=== PATIENT | female | born 2000 | race Two or more races ===

== ENCOUNTER 2020-11-24 16:40 | Emergency (ER) | payer MEDICAID ==
[~2020-11-24] VITALS: Ht 162.6 cm; Wt 113.4 kg
[2020-11-24 16:50] VITALS: BP 132/85
--- NOTE | 2020-11-24 16:50 | NUR ---
ED Nurse Note: Pt walked in to ED from home c/o flank pain radiating to RLQ x4 days. Denies nausea/ vomiting/ diarrhea. No fever. Per pt, she tetsed positive covid last 11/05/20, was treated with atb and tested negative last 11/19. Denies SOB/ CP. AAOx4, verbally responsive. ERMD at bedside.
[2020-11-24 17:23] LABS: APPEARANCE,URINE SLIGHTLY CLOUDY; BILIRUBIN, URINE NEGATIVE (NEGATIVE); COLOR,URINE PALE YELLOW; GLUCOSE, URINE (UA) NEGATIVE (NEGATIVE); KETONES,URINE 3+ (NEGATIVE); LEUKOCYTE ESTERASE ,URINE 2+ (NEGATIVE); NITRITE,URINE NEGATIVE (NEGATIVE); PH,URINE 6 (4.5-8.0); PROTEIN,URINE NEGATIVE (NEGATIVE); UROBILINOGEN,URINE NORMAL MG/DL (0.0-1.0)
--- NOTE | 2020-11-24 17:39 | NUR ---
ED Nurse Note: pt was taken to CT via wc, accompanied by a tech.
--- NOTE | 2020-11-24 17:40 | NUR ---
ED Nurse Note: IV line established. Blood and urine sent to lab.
[2020-11-24] MEDS ORDERED: cefTRIAXone 1 GM in NS 55 ML IVPB ONE (17:45)
[2020-11-24] MEDS ORDERED: NAPROXEN500 M1 ORAL (17:46)
[2020-11-24] MEDS ORDERED: CEPHALEXIN500 MG ORAL (17:46)
[2020-11-24] MEDS ORDERED: ONDANSETRON ODT4 MG BC (17:46)
--- NOTE | 2020-11-24 17:46 | Emergency Room Report ---
History of Present Illness General Chief Complaint: Abdominal Pain Source: Patient Present Illness HPI 20-year-old female with past medical history of ovarian cyst status post resection, COVID-19 diagnosed 3 weeks ago presents to emergency department with complaint of right flank pain x4 days. Radiates to the right lower quadrant. Endorses mild nausea. Denies history of kidney stones, fever, chills, vomiting, diarrhea, melena, hematochezia, dysuria, hematuria. Is not sexually active. Denies concern or history of sexually transmitted infection. The patient's symptoms were gradual onset, severity was moderate, duration since 4 days. States she was treated with azithromycin x5 days after her initial COVID-19 diagnosis at [facility]. She started to feel better, however it feels similar to when she had COVID-19. She denies any chest pain, shortness of breath, hemoptysis, pelvic pain, leg swelling, or any other symptoms. Quality: Aching Past medical history: Obesity, ovarian cyst, COVID-19 Past surgical history: Ovarian cyst removal Smoking: Denies Alcohol use: Denies Drug use: Denies Review of systems: CONST: No fevers or chills, No night sweats PULMONARY: No productive cough, No shortness of breath CARDIAC: No chest pain, No palpitations GI: No vomiting, No diarrhea , No melena_or_BRBPR : No dysuria, No hematuria, No discharge NEURO: No new_focal_weakness_or_numbness, No confusion, No vision changes 14 point Review of Systems is otherwise negative except per HPI Physical Exam: GENERAL: Awake_alert_ nontoxic, no acute distress Spo2 98% on RA -normal. Obese EYES: Extraocular muscles are intact. Conjunctivae clear. Lids without swelling ENT: External nose and ear normal_in_appearance. Oropharynx clear. Head_atraumatic, Moist_oral_mucosa NECK: No JVD. No meningismus. No thyromegaly. Supple. Trachea midline RESP: Normal respiratory effort. Symmetric rise. No stridor. Clear_to_auscultat ion_No_rales_No_wheezes CARDIAC: Regular rate and regular rhytm. No_significant pedal edema. ABDOMEN: Soft. Nondistended. Nontender_No_rebound_or_guarding. No pulsatile mass. Negative Hassan sign. Negative Rovsing sign. Negative obturator sign. No rash. MSK: Normal muscle tone, without rigidity. Extremities without asymmetric deformity or swelling. SKIN: Warm and dry. No visible cyanosis or pallor NEUROLOGIC: Alert, oriented x3. Motor_and_sensation_grossly_intact. No truncal ataxia. Gait_normal Psych: Normal mood and affect, normal judgment and insight - COORDINATION OF CARE Case was discussed with: Patient Any labs and imaging that were ordered were interpreted as part of the medical decision making: Medical Decision Making/Plan: Differential diagnosis includes pyelonephritis, kidney stone, cholecystitis, choledocholithiasis, hepatitis, small bowel obstruction, volvulus, AAA, pancreatitis, atypical appendicitis, gastroparesis, gastritis, peptic ulcer disease, among others. Patient is well appearing with stable vital signs. Abdominal exam is non peritoneal with no guarding or rebound. Labs show evidence of urinary tract infection. Patient was offered empiric treatment for gonorrhea and chlamydia, however she denies concern for sexually transmitted infection. She is not currently sexually active. She received Rocephin here in the emergency department. EKG shows normal sinus rhythm. No ectopy or ischemia. CT of abdomen pelvis shows fatty liver. No hydronephrosis, pyelonephritis, or acute surgical abdomen. Incidentally she was noted to have groundglass opacities of the bases of the lungs. This makes sense given her previous history of COVID-19. She does not have any respiratory symptoms at this time. Chest x-ray shows no acute disease. The patient denies any bloody stool and has no pain out of proportion to exam, and no significant risk factors for mesenteric ischemia such as atrial fibrillation or severe PAD/PVD (peripheral arterial / vascular disease), thus definitive workup to rule out mesenteric ischemia was not pursued. Patient is afebrile, without any significant tenderness in the RUQ, and a negative [place] sign. The patients presentation does not appear to be consistent with acute cholecystitis and thus definitive imaging to rule it out was not pursued. The patient has no significant risk factors for AAA (abdominal aortic aneurysm) such as age over 50 with history of hypertension, connective tissue disorder, or 1st degree relative with AAA. the patient has normal dorsalis pedis pulses, no radiation of pain to the back, and no pulsatile mass felt on exam. The patients profile was overall low risk for AAA and definitive workup was not pursued. The patients symptoms are not consistent with ACS (acute coronary syndrome), symptoms are not exertional, EKG without obvious ischemic change. Pertinent results reviewed with the patient. I educated the patient on the current treatment plan including the risks, benefits, and alternatives. I also discussed the extent and limitations of the current evaluation. The patient expressed understanding and agreement with plan. I recommended PMD follow-up within 1-2 days. Also advised that the patient return to the Emergency Department as soon as possible if they experience any new, persistent, or worsening symptoms. Allergies: Coded Allergies: No Known Allergies (Unverified , 11/24/20) COVID-19 Screening Contact w/high risk pt: No Experienced COVID-19 symptoms?: No COVID-19 Testing performed GRINDER AND PLATER: No COVID-19 Testing Source: (+) 11/07, last week (-) Patient History Last Menstrual Period: 11/05/2020 Now: No Physical Exam Vital Signs Date Time Temp Pulse Resp B/P (MAP) Pulse Ox O2 Delivery O2 Flow Rate FiO2 11/24/20 16:45 98.2 90 18 132/85 (101) 97 Room Air Sp02 EP Interpretation: reviewed, normal Medical Decision Making Diagnostic Impression: Primary Impression: Right flank pain Additional Impressions: Urinary tract infection Obesity, morbid, BMI 40.0-49.9 Fatty liver COVID-19 EKG Diagnostic Results Troponin ordered: Yes When was troponin ordered?: Nov 24, 2020 SONJA Davison 12-lead EKG (interpreted by ) Time: 1734 Indication: Rhythm analysis Tracing visualized and Interpreted by me. Rhythm: Normal sinus rhythm Rate: 88 bpm QTc: 442 Morphology: No_significant_ST_elevations_or_depressions, No STEMI Impression: Normal_sinus_rhythm_without_significant_abnormality Rhythm Strip Diag. Results Rhythm Strip Time: 17:44 EP Interpretation: yes Rate: 80 Rhythm: NSR, no PVC's, no ectopy Chest X-Ray Diagnostic Results Chest X-Ray Diagnostic Results : SONJA Davison Chest X-Ray: Views: [ 1 ] view(s) Indication: Abd Pain Findings: Normal heart size. Mediastinum normal. No infiltrate. Impression: NAD The X-ray(s) were independently viewed and interpreted contemporaneously Electronically signed by , Adela Mota, CT/MRI/US Diagnostic Results CT/MRI/US Diagnostic Results : Impression CT Abdomen and Pelvis Without Intravenous Contrast CLINICAL HISTORY: ABD PAIN TECHNIQUE: Axial computed tomography images of the abdomen and pelvis without intravenous contrast. CTDI is 46.5 mGy and DLP is 1677.10 mGy-cm. One or more of the following dose reduction techniques were used: automated exposure control, adjustment of the mA and/or kV according to patient size, use of iterative reconstruction technique. COMPARISON: No relevant prior studies available. FINDINGS: Lung bases: Patchy groundglass at the lung bases. ABDOMEN: Liver: Hepatic steatosis. Gallbladder and bile ducts: Unremarkable. Pancreas: Unremarkable. Spleen: Unremarkable. Adrenals: Unremarkable. Kidneys and ureters: Unremarkable. No obstructing stones. No hydronephrosis. Stomach and bowel: Unremarkable. PELVIS: Appendix: No findings to suggest acute appendicitis. Bladder: Unremarkable. Reproductive: Unremarkable as visualized. ABDOMEN and PELVIS: Intraperitoneal space: Unremarkable. No free air. No significant fluid collection. Bones/joints: No acute fracture. Soft tissues: Unremarkable. Vasculature: Unremarkable. Lymph nodes: Unremarkable. IMPRESSION: 1. Patchy groundglass at the lung bases. Covid can have this appearance. Correlate clinically. 2. Hepatic steatosis. Reevaluation Time: 17:45 Last Vital Signs Date Time Temp Pulse Resp B/P (MAP) Pulse Ox O2 Delivery O2 Flow Rate FiO2 11/24/20 16:50 98.2 90 18 132/85 97 Room Air Status: improved Disposition: HOME, SELF-CARE Admit Decision Time: 19:25 Condition: Stable Scripts Naproxen* (NAPROXEN*) 500 Mg Tablet.dr 500 MG ORAL TWICE A DAY for 7 Days, #14 TAB Prov: Adela Mota.Deidra. 11/24/20 Ondansetron Odt* (ZOFRAN ODT*) 4 Mg Tab.rapdis 4 MG BC EVERY 6 HOURS PRN for Nausea & Vomiting, #10 TAB 0 Refills Prov: Adela Mota.Deidra. 11/24/20 Cephalexin* (KEFLEX*) 500 Mg Capsule 500 MG ORAL EVERY 12 HOURS, #14 CAP 0 Refills Prov: Adela Mota.Deidra. 11/24/20 Patient Instructions: Abdominal Pain, Adult, Urinary Tract Infection, [id number] Additional Instructions: Instructions for patient/career development specialist: Follow up with your physician in 1-2 days. Follow-up with your doctor sooner if your condition requires a more timely clinical reevaluation. Return to the emergency department immediately if you feel that your condition is worsening or if you have any new or concerning symptoms. Review your discharge instructions and take any prescriptions given as instructed. Do not eat fatty or greasy foods. You have a fatty liver. This is reversible as we discussed. You need to follow-up with your primary care doctor for continued management. If you do not control this, you may progress into having worsened liver function. [facility] PROVIDES FREE OR LOW-COST HEALTH SERVICES TO PEOPLE WHO CAN SHOW PROOF THAT THEY LIVE IN [facility]. TO FIND MORE CLINICS PARTNERED WITH THE [facility] TO PROVIDE SERVICE, PLEASE CALL . You had a urine culture done to evaluate for specific types of bacteria associated with your urinary infection. You were given an antibiotic that should treat most bacteria that usually occur with a urinary infection, but there is always the possibility of antibiotic resistance. You will receive a telephone call if it is positive. If you do not receive a call, they are likely negative, but you should return to medical records to get your results to be sure, or have your primary doctor obtain them from our hospital, and especially if you are having persistent symptoms. If you are having persistent symptoms and are not able to get a hold of your culture results or your regular doctor you should return to the ER for a reevaluation. Adela Mota D.O. Nov 24, 2020 17:46
--- NOTE | 2020-11-24 17:52 | NUR ---
ED Nurse Note: Pt returned from CT. Xray done at bedside.
[2020-11-24 18:03] LABS: BASOPHILS % (AUTO) 1.2 % (0.0-2.0); EOSINOPHILS % (AUTO) 0.9 % (0.0-3.0); HEMOGLOBIN 14.3 G/DL (12.0-16.0); LYMPHOCYTES % (AUTO) 33.3 % (20.0-45.0); MEAN CORPUSCULAR VOLUME 88 FL (80-99); MONOCYTES % (AUTO) 8.4 % (1.0-10.0); NEUTROPHILS % (AUTO) 56.2 % (45.0-75.0); PLATELET COUNT 261 K/UL (150-450); RED BLOOD COUNT 4.34 M/UL (4.20-5.40); RED CELL DISTRIBUTION WIDTH 12.8 % (11.6-14.8); WHITE BLOOD COUNT 7.1 K/UL (4.8-10.8)
--- NOTE | 2020-11-24 18:19 | Diagnostic Imaging Report ---
EXAM: XR Chest, 1 View CLINICAL HISTORY: PAIN TECHNIQUE: Frontal view of the chest. COMPARISON: No relevant prior studies available. FINDINGS: Lungs: Unremarkable. No consolidation. Pleural space: No pleural effusion. No pneumothorax. Heart: Unremarkable. No cardiomegaly. Bones/joints: Unremarkable. IMPRESSION: No acute cardiopulmonary abnormality.
[2020-11-24 18:21] LABS: ANION GAP 7 mmol/L (5-15); BLOOD UREA NITROGEN 8 mg/dL (7-18); CALCIUM 10.6 MG/DL (8.5-10.1); CARBON DIOXIDE 27 MMOL/L (21-32); CHLORIDE 102 MMOL/L (98-107); CREATININE 0.6 MG/DL (0.55-1.30); POTASSIUM 3.9 MMOL/L (3.5-5.1); SODIUM 136 MMOL/L (136-145)
[2020-11-24 18:26] LABS: ALANINE AMINOTRANSFERASE 177 U/L (12-78); ALBUMIN 4.3 G/DL (3.4-5.0); ALKALINE PHOSPHATASE 60 U/L (46-116); ASPARTATE AMINO TRANSFERASE 60 U/L (15-37); BILIRUBIN,TOTAL 0.6 MG/DL (0.2-1.0)
--- NOTE | 2020-11-24 19:07 | Diagnostic Imaging Report ---
EXAM: CT Abdomen and Pelvis Without Intravenous Contrast CLINICAL HISTORY: ABD PAIN TECHNIQUE: Axial computed tomography images of the abdomen and pelvis without intravenous contrast. CTDI is 46.5 mGy and DLP is 1677.10 mGy-cm. One or more of the following dose reduction techniques were used: automated exposure control, adjustment of the mA and/or kV according to patient size, use of iterative reconstruction technique. COMPARISON: No relevant prior studies available. FINDINGS: Lung bases: Patchy groundglass at the lung bases. ABDOMEN: Liver: Hepatic steatosis. Gallbladder and bile ducts: Unremarkable. Pancreas: Unremarkable. Spleen: Unremarkable. Adrenals: Unremarkable. Kidneys and ureters: Unremarkable. No obstructing stones. No hydronephrosis. Stomach and bowel: Unremarkable. PELVIS: Appendix: No findings to suggest acute appendicitis. Bladder: Unremarkable. Reproductive: Unremarkable as visualized. ABDOMEN and PELVIS: Intraperitoneal space: Unremarkable. No free air. No significant fluid collection. Bones/joints: No acute fracture. Soft tissues: Unremarkable. Vasculature: Unremarkable. Lymph nodes: Unremarkable. IMPRESSION: 1. Patchy groundglass at the lung bases. Covid can have this appearance. Correlate clinically. 2. Hepatic steatosis.
--- NOTE | 2020-11-24 19:07 | NUR ---
HAND-OFF: Report given to Liz BUI.
[2020-11-24 19:30] VITALS: BP 122/83
--- NOTE | 2020-11-24 19:30 | NUR ---
ER DISCHARGE NOTE: Patient is cleared to be discharged per ERMD, pt is aox4, on room air, with stable vital signs. pt was given dc and prescription instructions, pt was able to verbalize understanding, pt id band and iv site removed without complications. pt is able to ambulate with steady gait. pt took all belongings.
== END 2020-11-24 19:30 | disposition home or self-care (01) ==
LOC: EMR 18:55
DX: R10.9 Unspecified abdominal pain (principal); N39.0 Urinary tract infection, site not specified; E66.01 Morbid (severe) obesity due to excess calories; Z68.41 Body mass index [BMI] 40.0-44.9, adult; K76.0 Fatty (change of) liver, not elsewhere classified; U07.1 COVID-19
CPT/HCPCS: 36415; 71045; 74176; 80053; 81003; 81025; 83690; 84484; 84702; 85025; 87086; 93005; 96365; J0696; Z7502; 99284